=== PATIENT | female | born 1955 | race Caucasian/White ===

== ENCOUNTER 2023-01-04 23:00 | Emergency (ER) | payer MEDICARE, OTHER ==
[2023-01-04] MEDS ORDERED: Ondansetron 4 MG/2 ML SDV IVPUSH ONE (23:38)
[2023-01-04] MEDS ORDERED: Aspirin 81 MG Tab.Chew PO ONE (23:38)
[2023-01-04] MEDS ORDERED: Sodium Chloride 0.9% 1,000 ML IV ONE (23:38)
[2023-01-04] MEDS ORDERED: Sodium Chloride 0.9% 10 ML Syringe FLUSH PRN (23:39)
[2023-01-04 23:46] LABS: BASOPHILS PERCENT AUTO 0.3 % (0.0-1.0); EOSINOPHILS PERCENT AUTO 1.1 % (1.0-3.0); HEMATOCRIT 35.4 % (37.0-47.0); HEMOGLOBIN 12.3 g/dL (12.0-16.0); LYMPHOCYTES PERCENT AUTO 22.5 % (20.5-50.1); MEAN CORPUSCULAR HEMOGLOBIN 30.8 pg (27.0-34.0); MEAN CORPUSCULAR HGB CONC 34.7 g/dL (33.0-35.0); MEAN CORPUSCULAR VOLUME 88.7 fL (80-100); MONOCYTES PERCENT AUTO 6.1 % (2-8); PLATELET COUNT,PLT 255 10^3/uL (150-450); RED BLOOD CELL COUNT 3.99 10^6/uL (4.2-5.4); WHITE BLOOD CELL COUNT,WBC 7.4 10^3/uL (5.0-10.0)
[2023-01-04 23:59] LABS: A/G RATIO 1.5; ALBUMIN 4.2 g/dL (3.4-5.0); ANION GAP 11.8 mEq/L (7-13); BILIRUBIN TOTAL 0.6 mg/dL (0.2-1.0); BUN/CREATININE RATIO 13.8 (No establ ref range); CALCIUM 8.4 mg/dL (8.5-10.1); CREATININE 0.8 mg/dL (0.55-1.02); EST CRCL DRUG DOSING (CG) 57.31 mL/min; POTASSIUM,K 3.8 mmol/L (3.5-5.1)
[2023-01-05] MEDS ORDERED: Metoclopramide 10 MG/2 ML SDV IVPUSH ONE (00:28)
== END 2023-01-05 01:29 | disposition home or self-care (01) ==
LOC: DL.ED 23:00
DX: T67.5XXA Heat exhaustion, unspecified, initial encounter (principal); E87.1 Hypo-osmolality and hyponatremia; R07.9 Chest pain, unspecified; I45.10 Unspecified right bundle-branch block; M19.90 Unspecified osteoarthritis, unspecified site; E03.9 Hypothyroidism, unspecified; Z79.899 Other long term (current) drug therapy; Z91.048 Other nonmedicinal substance allergy status; Z88.5 Allergy status to narcotic agent; Z79.82 Long term (current) use of aspirin
CPT/HCPCS: 36415; 80053; 84484; 85025; 93005; 93010; 96361; 96374; 96375; 99284; 99285; A9270; J2405; J2765; J7030; J3490